=== PATIENT | female | born 1970 | race Caucasian/White ===

== ENCOUNTER 2023-10-20 16:19 | Emergency (ER) | payer SELFPAY ==
[~2023-10-20] VITALS: Ht 160 cm; Wt 71.7 kg
[2023-10-20 16:38] VITALS: BP_SYST 144; PULSE 79; RESP 17; TEMP 98; O2SAT 96
[2023-10-20 16:56] VITALS: BP_SYST 131; PULSE 84; RESP 18; TEMP 97.5; O2SAT 98
[2023-10-20 17:36] VITALS: BP_SYST 128; PULSE 76; RESP 18; TEMP 98.2; O2SAT 100
== END 2023-10-20 17:30 | disposition home or self-care (01) ==
LOC: SED 16:19
DX: S92.354A Nondisplaced fracture of fifth metatarsal bone, right foot, initial encounter for closed fracture (principal); Z79.899 Other long term (current) drug therapy; W01.0XXA Fall on same level from slipping, tripping and stumbling without subsequent striking against object, initial encounter; Y93.89 Activity, other specified; Y92.89 Other specified places as the place of occurrence of the external cause; Y99.8 Other external cause status
CPT/HCPCS: 99281